=== PATIENT | male | born 1975 | race Two or more races ===

== ENCOUNTER 2019-11-03 15:38 | Emergency (ER) | payer OTHER ==
[~2019-11-03] VITALS: Ht 167.6 cm; Wt 76.1 kg
[2019-11-03 15:50] VITALS: BP 122/80
[2019-11-03] MEDS ORDERED: AMOX1TAB11 PO (16:51)
--- NOTE | 2019-11-03 16:53 | PHYS DOC ---
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 Pt reports Cannot recall if his tetanus is up-to-date. Admits to tobacco dependence. Primary care physician is Dr. Romero. Is able to ambulate with no pain in the ankle or knee. Review of Systems: Review of Systems: Constitutional: Denies fever or chills Eyes: Denies change in visual acuity HENT: Denies nasal congestion or sore throat Respiratory: Denies cough or shortness of breath Cardiovascular: Denies chest pain or edema GI: Denies abdominal pain, nausea, vomiting, or diarrhea : Denies dysuria Musculoskeletal: Denies back pain or joint pain Integument: Denies rash Neurologic: Denies headache, focal weakness or sensory changes Endocrine: Denies polyuria or polydipsia Lymphatic: Denies swollen glands Psychiatric: Denies depression or anxiety Heart Score: Risk Factors: Risk Factors: DM, Current or recent (<one month) smoker, HTN, HLP, family history of CAD, obesity. Risk Scores: Score 0 - 3: 2.5% MACE over next 6 weeks - Discharge Home Score 4 - 6: 20.3% MACE over next 6 weeks - Admit for Clinical Observation Score 7 - 10: 72.7% MACE over next 6 weeks - Early Invasive Strategies Allergies: Allergies: Allergies Coded Allergies Type Severity Reaction Last Updated Verified No Known Drug Allergies 12/09/13 No Physical Exam: PE: Constitutional: Well developed, well nourished, no acute distress, non-toxic appearance. [] HENT: Normocephalic, atraumatic, Eyes: EOMI, conjunctiva normal, no discharge. [] Neck: Normal range of motion, supple Cardiovascular:Heart rate regular rhythm, no murmur [] Lungs & Thorax: Bilateral breath sounds clear to auscultation [] Abdomen: Bowel sounds normal, soft, no tenderness, no masses, no pulsatile masses. [] Skin: Warm, dry, no erythema, 2 superficial abrasions over distal lateral right leg, no active bleeding, no underlying swelling or bone ttp, no pain at right ankle/knee Back: No tenderness, no CVA tenderness. [] Extremities: No tenderness, no cyanosis, no clubbing, ROM intact, no edema. [] Neurologic: Alert and oriented X 3, normal motor function, normal sensory function, no focal deficits noted. [] Psychologic: Affect normal, judgement normal, mood normal. [] Current Patient Data: Vital Signs: Vital Signs Date Time Temp Pulse Resp B/P (MAP) Pulse Ox O2 Delivery O2 Flow Rate FiO2 11/03/19 15:50 98.4 97 20 122/80 (94) 97 Room Air EKG: EKG: [] Radiology/Procedures: Radiology/Procedures: [] Course & Med Decision Making: Course & Med Decision Making Pertinent Labs and Imaging studies reviewed. (See chart for details) Concern for small, 2 superficial scratch wounds to right lateral leg that are scabbed up, no underlying pain or edema to indicate any bone involvement. Patient with steady gait, in no significant distress. Tetanus is updated in the ED. Per [employer] please officer Tio, police report and officer confirmed dog was up-to-date on his vaccinations. Will prescribe Augmentin for dog bite with wound care follow-up with PMD in 3 to 5 days. Strict ED return precautions given for severe pain, rash, swelling or purulent drainage. Encouraged urgent outpatient follow-up with PMD. Life-threatening processes were considered but are low suspicion at this time, given history and physical exam. Pt was educated on all prescription medications and adverse effects. All patient's questions were answered and pt was stable at time of discharge. Differential includes erythema multiforme, ordaz-tyra syndrome, toxic epidermal necrolysis, staphylococcal scalded skin syndrome, necrotizing fasc iitis/myositis/cellulitis, purpura fulminans, heparin or warfarin induced skin necrosis, drug rash, disseminated intravascular coagulation, disseminated gonococcal disease, vasculitis, septicemia, petechial disorder or coagulopathy, fracture, ligament or tendon injury I spoken with the patient and her caregivers. I explained the patient's condition, diagnoses and treatment plan based on the information available to me at this time. I have answered the patient and her caregiver's questions and addressed any concerns. The patient and her caregivers have a good understanding of patient's diagnosis, condition and treatment plan as can be expected at this point. Vital signs have been stable. Patient's condition is stable and appropriate for discharge from the emergency department. Patient will pursue further outpatient evaluation with primary care physician or other designated or consulting physician as outlined in the discharge instructions. The patient and/or caregivers are agreeable to this plan of care and follow-up instructions have been explained in detail. The patient and/or caregivers have received these instructions in written form and have expressed an understanding of the discharge instructions. The patient and/or caregivers are aware that any significant change of condition or worsening of symptoms should prompt immediate return to this or the closest emergency department or call to 911. DragClue App Disclaimer: DragClue App Disclaimer: This electronic medical record was generated, in whole or in part, using a voice recognition dictation system. Departure Departure: Impression: Primary Impression: Dog bite of right lower leg Additional Impression: Need for tetanus, diphtheria, and acellular pertussis (Tdap) vaccine in patient of adolescent age or older Disposition: 01 HOME/RESIDENCE PRIOR TO ADM Condition: STABLE Referrals: MARILYN ROMERO MD (PCP) Patient Instructions: Animal Bite Additional Instructions: Dr. Romero in 3-5 days for wound check Scripts Amoxicillin/Potassium Clav (AMOX TR-K CLV 875-125 MG TAB) 1 Each Tablet 875 TAB PO BID for dog bite, #20 TAB Prov: MARY JO FERNÁNDEZ DO 11/03/19 Justification of Admission: Justification of Admission: Justification of Admission Dx: N/A MARY JO FERNÁNDEZ DO Nov 03, 2019 16:53
[2019-11-03] MEDS ORDERED: DIPH,PERTUSS(ACELL),TET VAC/PF 0.5 ML SYRINGE. VAX IM ONE ×2 (16:59→17:00)
== END 2019-11-03 17:07 | disposition home or self-care (01) ==
LOC: ER 15:38
DX: S80.811A Abrasion, right lower leg, initial encounter (principal); K21.9 Gastro-esophageal reflux disease without esophagitis; F17.200 Nicotine dependence, unspecified, uncomplicated; W54.0XXA Bitten by dog, initial encounter; Y93.89 Activity, other specified; Y92.89 Other specified places as the place of occurrence of the external cause; Y99.8 Other external cause status
CPT/HCPCS: 90471; 90715; 99283-25

== ENCOUNTER 2020-11-28 17:10 | Emergency (ER) | payer OTHER ==
[~2020-11-28] VITALS: Ht 167.6 cm; Wt 81.6 kg
[~2020-11-28 17:10] MED LIST: AMOX1TAB11 PO
[2020-11-28 17:27] VITALS: BP 152/66
--- NOTE | 2020-11-28 17:40 | PHYS DOC ---
Past History Past Medical History: GERD (REGULO MOSS DO) Past Surgical History: No Surgical History (REGULO MOSS DO) Alcohol Use: None Drug Use: None (REGULO MOSS DO) General Adult EDM: Chief Complaint: ABDOMINAL PAIN HPI: HPI: 45-year-old male presents with abdominal pain. It is both epigastric as well as suprapubic pain. He has had a since yesterday. He has had some diarrhea but no vomiting. He has never had pain like this. It is moderate in intensity and cramping. It comes and goes in waves at random. He denies dysuria or increased urinary frequency. Denies fever or chills. (REGULO MOSS DO) Review of Systems: Review of Systems: Constitutional: Denies fever or chills Eyes: Denies change in visual acuity HENT: Denies nasal congestion or sore throat Respiratory: Denies cough or shortness of breath Cardiovascular: Denies chest pain or edema GI: Epigastric and suprapubic abdominal pain, diarrhea : Denies dysuria Musculoskeletal: Denies back pain or joint pain Integument: Denies rash Neurologic: Denies headache, focal weakness or sensory changes Endocrine: Denies polyuria or polydipsia Lymphatic: Denies swollen glands Psychiatric: Denies depression or anxiety (REGULO MOSS DO) Allergies: Allergies: Allergies Coded Allergies Type Severity Reaction Last Updated Verified No Known Drug Allergies 12/09/13 No (REGULO MOSS DO) Physical Exam: PE: Constitutional: Well developed, well nourished, no acute distress, non-toxic appearance. [] HENT: Normocephalic, atraumatic, bilateral external ears normal, oropharynx moist, no oral exudates, nose normal. [] Eyes: PERRLA, EOMI, conjunctiva normal, no discharge. [] Neck: Normal range of motion, no tenderness, supple, no stridor. [] Cardiovascular: Heart rate regular rhythm, no murmur [] Lungs & Thorax: Bilateral breath sounds clear to auscultation [] Abdomen: Bowel sounds normal, soft, mild epigastric and suprapubic tenderness, no masses, no pulsatile masses. [] Skin: Warm, dry, no erythema, no rash. [] Back: No tenderness, no CVA tenderness. [] Extremities: No tenderness, no cyanosis, no clubbing, ROM intact, no edema. [] Neurologic: Alert and oriented X 3, normal motor function, normal sensory function, no focal deficits noted. [] Psychologic: Affect normal, judgement normal, mood normal. [] (REGULO MOSS DO) Current Patient Data: Vital Signs: Vital Signs Date Time Temp Pulse Resp B/P (MAP) Pulse Ox O2 Delivery O2 Flow Rate FiO2 11/28/20 17:27 98.2 94 18 152/66 (94) 95 (REGULO MOSS DO) EKG: EKG: [] (REGULO MOSS DO) Radiology/Procedures: Radiology/Procedures: [] (REGULO MOSS DO) Radiology/Procedures: Study: CT abdomen/pelvis with intravenous contrast Indication: Left lower quadrant pain. Comparison: 12/09/2013 Technique: Helical CT imaging performed of the abdomen and pelvis after the intravenous administration of Isovue-370 contrast. Sagittal and coronal reformats were obtained. One or more of the following individualized dose reduction techniques were utilized for this examination: 1. Automated exposure control 2. Adjustment of the mA and/or kV according to patient size 3. Use of iterative reconstruction technique. Findings: Chest: Tiny hiatal hernia. Unremarkable lower lungs. Liver: Possible mild fatty infiltration. Gallbladder/Biliary Tree: Unremarkable. Pancreas: Unremarkable. Spleen: Within normal limits for size. Adrenal Glands: No adrenal gland mass. Kidneys/Ureters/Bladder: Symmetric renal parenchymal enhancement. No collecting system dilatation or stone. Bladder wall thickness is within normal limits. Reproductive Organs: Within normal limits size of the prostate. Colon: No localized colonic wall thickening or pericolonic inflammation. Appendix: Normal. Small Bowel: Normal course and caliber. Stomach: Unremarkable. Vasculature: No major vascular abnormality. Lymph Nodes: No lymphadenopathy is size criteria. Peritoneum and Body Wall: No free fluid or pneumoperitoneum. Symmetric muscular bulk. Bones: No acute or aggressive osseous process. Mild bilateral hip arthrosis with acetabular subchondral cystic change which was also present previously but expectedly has mildly progressed over 7 years. Miscellaneous: None. Impression: No acute abnormality identified throughout the abdomen or pelvis. In the setting of reported left lower quadrant pain there are no findings to indicate an active colitis. No bowel obstruction. Electronically signed by: ERIK ANDREWS MD (11/28/2020 6:30 PM) [facility] (JENSEN SALAS DO) Heart Score: C/O Chest Pain: N/A Risk Factors: Risk Factors: DM, Current or recent (<one month) smoker, HTN, HLP, family history of CAD, obesity. Risk Scores: Score 0 - 3: 2.5% MACE over next 6 weeks - Discharge Home Score 4 - 6: 20.3% MACE over next 6 weeks - Admit for Clinical Observation Score 7 - 10: 72.7% MACE over next 6 weeks - Early Invasive Strategies (REGULO MOSS DO) C/O Chest Pain: No (JENSEN SALAS DO) Course & Med Decision Making: Course & Med Decision Making Pertinent Labs and Imaging studies reviewed. (See chart for details) The patient's work-up is pending. I am signing the patient out to Dr. Sergei Guzman . [] (REGUOL MOSS DO) Course & Med Decision Making Comprehensive signout obtained from off going physician I repeated certain aspects of history and physical exam and disclosed entirety of ER findings with patient that were negative for any emergent or surgical issues Patient has access to GI physician in outpatient setting whom I advised him to follow-up with No indication for further diagnostic work-up intervention or hospitalization at this time. Continued supportive care practices advised (JENSEN SALAS DO) Dragon Disclaimer: Dragon Disclaimer: This electronic medical record was generated, in whole or in part, using a voice recognition dictation system. (REGULO MOSS DO) Departure Departure: Impression: Primary Impression: Abdominal pain, unspecified site Disposition: HOME / SELF CARE / HOMELESS Condition: STABLE Referrals: MARILYN ROMERO MD (PCP) Additional Instructions: You have been evaluated in the Emergency Department today for abdominal pain. Your evaluation was not suggestive of any emergent condition requiring medical intervention at this time. However, some abdominal problems make take more time to appear. Therefore, it is important for you to watch for any new symptoms or worsening of your current condition. Please follow up with your primary care physician as needed. If you do not have a primary doctor, you can call your insurance company to find one. If you do not have insurance, you can go to the finance/registration department for more assistance. Return to the Emergency Department if you experience worsening pain, persistent fevers greater than 100.4, recurrent vomiting, blood in vomit, blood in stool, dark tarry stool, chest pain, difficulty breathing, or any other concerning symptoms. REGULO MOSS DO Nov 28, 2020 17:40 JENSEN SALAS DO Nov 28, 2020 18:38
[2020-11-28] MEDS: IOHEXOL 300 MG/ML 75 ML VIAL. IV ONE (18:00)
[2020-11-28 18:03] LABS: BASO % 1 % (0-3); EOS # 0.2 x10^3/uL (0.0-0.7); EOS % 4 % (0-3); HEMATOCRIT 42.8 % (39.0-53.0); HEMOGLOBIN 14.1 g/dL (13.0-17.5); LYMPH # 1.5 x10^3/uL (1.0-4.8); LYMPH % 32 % (24-48); MEAN CORPUSCULAR HEMOGLOBIN 27 pg (25-35); MEAN CORPUSCULAR HGB CONC 33 g/dL (31-37); MEAN CORPUSCULAR VOLUME 82 fL (79-100); MONO # 0.5 x10^3/uL (0.0-1.1); MONO % 10 % (0-9); NEUT # 2.6 x10^3uL (1.8-7.7); NEUT % 53 % (31-73); PLATELET COUNT 216 x10^3/uL (140-400); RED BLOOD COUNT 5.21 x10^6/uL (4.30-5.70); RED CELL DISTRIBUTION WIDTH 13.1 % (11.5-14.5); WHITE BLOOD COUNT 4.8 x10^3/uL (4.0-11.0)
[2020-11-28 18:05] LABS: CALCIUM 8.4 mg/dL (8.5-10.1); CREATININE 0.7 mg/dL (0.7-1.3); GFR 122.5; POTASSIUM 3.8 mmol/L (3.5-5.1)
[2020-11-28 18:11] LABS: ALBUMIN 3.6 g/dL (3.4-5.0); ALBUMIN/GLOBULIN RATIO 1.1 (1.0-1.7); TOTAL BILIRUBIN 0.2 mg/dL (0.2-1.0); TOTAL PROTEIN 6.8 g/dL (6.4-8.2)
--- NOTE | 2020-11-28 18:33 | RAD ---
Study: CT abdomen/pelvis with intravenous contrast Indication: Left lower quadrant pain. Comparison: 12/09/2013 Technique: Helical CT imaging performed of the abdomen and pelvis after the intravenous administratio n of Isovue-370 contrast. Sagittal and coronal reformats were obtained. One or more of the following individualized dose reduction techniques were utilized for this examinat ion: 1. Automated exposure control 2. Adjustment of the mA and/or kV according to patient size 3. Use of iterative reconstruction technique. Findings: Chest: Tiny hiatal hernia. Unremarkable lower lungs. Liver: Possible mild fatty infiltration. Gallbladder/Biliary Tree: Unremarkable. Pancreas: Unremarkable. Spleen: Within normal limits for size. Adrenal Glands: No adrenal gland mass. Kidneys/Ureters/Bladder: Symmetric renal parenchymal enhancement. No collecting system dilatation or stone. Bladder wall thickness is within normal limits. Reproductive Organs: Within normal limits size of the prostate. Colon: No localized colonic wall thickening or pericolonic inflammation. Appendix: Normal. Small Bowel: Normal course and caliber. Stomach: Unremarkable. Vasculature: No major vascular abnormality. Lymph Nodes: No lymphadenopathy is size criteria. Peritoneum and Body Wall: No free fluid or pneumoperitoneum. Symmetric muscular bulk. Bones: No acute or aggressive osseous process. Mild bilateral hip arthrosis with acetabular subchondr al cystic change which was also present previously but expectedly has mildly progressed over 7 years. Miscellaneous: None. Impression: No acute abnormality identified throughout the abdomen or pelvis. In the setting of reported left low er quadrant pain there are no findings to indicate an active colitis. No bowel obstruction. Electronically signed by: ERIK ANDREWS MD (11/28/2020 6:30 PM) [facility]
== END 2020-11-28 18:51 | disposition home or self-care (01) ==
LOC: ER 17:10
DX: R10.32 Left lower quadrant pain (principal); K21.9 Gastro-esophageal reflux disease without esophagitis
CPT/HCPCS: 36415; 74177; 80053; 83690; 85025; 99285; Q9967